=== PATIENT | female | born 1980 | race Caucasian/White ===

== ENCOUNTER → 2018-03-23 | Outpatient (CLI) | payer BC, OTHER ==
[~2018-03-23] MED LIST: BCPILLS PO; CGN5 PO; CLOZ100T PO; DPRCR15 TD; HALO5TAB PO; LITH300T2 PO; METR0.754 TD; NZRCR TD; OMEP40CA36 PO; SPIR50TA2 PO; SPT/ PO; SYN100 PO; [UNRECOGNIZED DRUG - OTHER]
--- NOTE | 2018-03-23 18:02 | DIAGNOSTIC IMAGING REPORT ---
PA CHEST WITH ABDOMINAL SERIES CLINICAL HISTORY: Constipation. FINDINGS: A PA chest radiograph is obtained. No prior studies are available for comparison at the time of dictation. The cardiomediastinal silhouette is unremarkable. The lungs and pleural spaces are clear noting minimal dependent atelectasis. No pneumothorax is seen. The bony thorax is grossly intact. Supine and erect abdominal radiographs are compared to study dated 11/14/2014. There is a nonobstructed abdominal bowel gas pattern. Moderate colonic fecal retention is observed. No evidence of intraperitoneal free air is seen. A tiny metallic foreign body projects over the left mid abdomen. There are no abnormal abdominal calcifications. The lumbosacral spine and bony pelvis appear intact. IMPRESSION: 1. No active disease in the chest. 2. Nonobstructed abdominal bowel gas pattern noting moderate constipation. 3. A tiny metallic foreign body projects over the left mid abdomen. Electronically signed by: Eugene Patton M.D. 03/23/2018 6:01 PM Dictated Date/Time: 03/23/2018 6:00 PM
== END | disposition home or self-care (01) ==
LOC: C.RAD 16:44
PROVIDERS: ATTEND Physician Assistant
DX: K59.00 Constipation, unspecified (principal); T18.8XXA Foreign body in other parts of alimentary tract, initial encounter; X58.XXXA Exposure to other specified factors, initial encounter

== ENCOUNTER 2024-01-10 19:17 | Observation (INO) ==
--- NOTE | 2024-01-10 19:48 | XRay Report ---
SINGLE VIEW CHEST CLINICAL HISTORY: Overdose FINDINGS: An AP, portable, upright chest radiograph is compared to study dated 01/10/2019. The cardiom ediastinal silhouette is unremarkable. The lungs and pleural spaces are clear. No pneumothorax is see n. There are chronic/healed left-sided rib fractures. IMPRESSION: No active disease in the chest. ACT 112: Negative or not required by law. Electronically signed by: Eugene Patton M.D. 01/10/2024 7:46 PM
[2024-01-10] MEDS: SODIUM CHLORIDE 0.9% 1,000 ML IV SCH ×2 (19:49→22:02)
[2024-01-10 20:22] LABS: Basophils # (auto) 0.07 K/uL (0.00-0.20); Basophils % (auto) 0.5 %; Eosinophils # (auto) 0.29 K/uL (0.00-0.50); Hematocrit (blood only) 37.9 % (37.0-47.0); Hemoglobin 13.1 g/dl (12.0-16.0); Immature Granulocytes # (auto) 0.06 K/uL (0.01-0.20); Immature Granulocytes % (auto) 0.4 %; Lymphocytes # (auto) 2.47 K/uL (1.20-3.40); Lymphocytes % (auto) 17.4 %; Mean Corpuscular Hemoglobin 30.5 pg (25.0-34.0); Mean Corpuscular Hgb Conc 34.6 g/dL (32.0-36.0); Mean Corpuscular Volume 88.1 fL (80.0-100.0); Monocytes # (auto) 0.68 K/uL (0.11-0.59); Monocytes % (auto) 4.8 %; Neutrophils # (auto) 10.59 K/uL (1.40-6.50); Neutrophils % (auto) 74.9 %; Platelet Count 316 K/uL (130-400); RDW Coefficient of Variation 11.8 % (11.5-14.5); RDW Standard Deviation 37.9 fL (36.4-46.3); White Blood Count 14.16 K/ul (4.8-10.8)
[2024-01-10 20:33] LABS: Albumin Level 4.2 gm/dl (3.4-5.0); Bilirubin,Total 0.3 mg/dl (0.2-1.0); Calcium 10.4 mg/dl (8.6-10.3); Magnesium 1.8 mg/dl (1.7-2.4); Potassium 3.5 mmol/L (3.5-5.1)
[2024-01-10 20:39] LABS: Albumin Globulin Ratio 1.7 (0.9-2); BUN Creatinine Ratio 17.8 (10-20); Creatinine Clr Calc Pharmacy 58.8 ml/min; Est GFR (African American) 65.4 ml/min; Est GFR (Non-African American) 56.4 ml/min; Globulin 2.5 gm/dl (2.5-4.0); Total Protein 6.7 gm/dl (6.0-8.3)
--- NOTE | 2024-01-10 20:48 | CT Scan Report ---
Exam(s): CT HEAD Without Contrast EXAM: CT Head Without Intravenous Contrast CLINICAL HISTORY: Reason for exam: ams. TECHNIQUE: Axial computed tomography images of the head/brain without intravenous contrast. CTDI is 36.55 mGy and DLP is 546.36 mGy-cm. Automated exposure control was utilized for the study. A dose lowering technique was utilized adhering to the principles of ALARA. COMPARISON: MRI brain on 06/05/2008 FINDINGS: Brain: No acute infarct or hemorrhage. No extra-axial fluid collection. No mass effect or midline shift. Ventricles and sulci: Normal. No ventriculomegaly or intraventricular hemorrhage. Bones: Normal. No bony lesion or acute fracture. Subcutaneous tissues: Normal. Sinuses: Normal. No air-fluid levels or mucosal thickening. Mastoid air cells: Normal. Orbits: Grossly unremarkable. IMPRESSION: No acute intracranial abnormality. Electronically signed by: Queenie Landry M.D. 01/10/24 20:46 PM
[2024-01-10 20:58] LABS: Acetaminophen < 3 ug/ml (10-30); Lithium 2.9 mmol/L (0.6-1.2); Salicylate < 3.0 mg/dl (3.0-30)
[2024-01-10] MEDS: SODIUM CHLORIDE 0.9% 1,000 ML IV ONE (21:17)
[2024-01-10 21:35] LABS: Thyroid Stimulating Hormone 1.391 uIu/ml (0.300-4.500)
[2024-01-10 21:40] LABS: Appearance Urine Clear (Clear); Bacteria Urine Automated None Seen (None Seen); Bilirubin Urine Negative (Negative); Blood Urine Trace (Negative); Cast Urine Automated 0-2 /lpf (0-2); Color Urine Yellow; Glucose Urine UA Negative (Negative); Ketones Urine Negative (Negative); Leukocyte Esterase Urine 1+ (Negative); Nitrite Urine Negative (Negative); Protein Urine Negative (Negative); RBC Urine Automated 0-2 /hpf (0-2); Specific Gravity Urine 1.007 (1.000-1.030); Urobilinogen Urine Negative (Negative)
--- NOTE | 2024-01-10 22:21 | History & Physical Report ---
Date of Service January 10, 2024 Assessment & Plan (1) [place] toxicity: (2) Constipation: (3) ADHD: (4) Hyperlipidemia: (5) Gastroesophageal reflux disease: (6) Paranoid schizophrenia: (7) Polycystic ovarian syndrome: Plan [place] toxicity- Dehydration with mild hypercalcemia, mild hyponatremia and borderline low magnesium Status post 2 L normal saline bolus in the ED Receiving an additional 500 mL of normal saline at 250 mL/h Maintenance IV fluids additional 1 L of LR at 125 MLS per hour Repeat CBC with differential, chemistry profile, magnesium and lithium levels in the a.m. Paranoid schizophrenia/ADHD Continue clozapine, amantadine, Adderall, naltrexone and sertraline Holding lithium due to toxicity PCOS/overweight/IBS with constipation- Following with bariatric service as outpatient Continue docusate, iron sulfate, naltrexone and omeprazole Hold Linzess and metformin History of Present Illness Chief Complaint: The patient is referred into the emergency department due to outpatient lab oratories which revealed an elevated lithium level Primary Care Provider: MARCE Rodriguez The patient is a 43-year-old female with a past medical history including ADHD, overweight with BMI 25.0-29 point hyperlipidemia, IBS with constipation, GERD, hypothyroidism, PCOS, and paranoid schizophrenia. Routine laboratories performed in the outpatient setting revealed a lithium level of 2.1, and patient had already taken her evening lithium dose before receiving her phone call by elevated level, and was told to come to the ED for assessment. [place] level in the ED is elevated 2.9, and she is referred for evaluation for admission. The patient's primary associated symptom is that of worsening fatigue. Allergies Allergy/AdvReac Type Severity Reaction Status Date / Time No Known Drug Allergies Allergy . Verified 01/10/24 21:36 nickel AdvReac Rash Verified 01/10/24 21:36 Home Medications Medication Instructions Recorded Confirmed Type sodium fluoride 1.1 %-potassium 1 applic dental DAILY 12/24/18 01/10/24 History nitrate 5 % dental paste (PreviDent 5000 Enamel Protect) lithium carbonate 300 mg capsule 1,200 mg PO HS 05/06/19 01/10/24 History polyethylene glycol 3350 17 17 g PO DAILY #238 grams 09/17/19 01/10/24 Rx gram/dose oral powder (Miralax) cholecalciferol (vitamin D3) 25 25 mcg PO DAILY 05/28/20 01/10/24 History mcg (1,000 unit) capsule ferrous sulfate 325 mg (65 mg 325 mg PO TID 05/28/20 01/10/24 History iron) tablet (Feosol) sertraline 100 mg tablet 250 mg PO DAILY 04/27/22 01/10/24 History docusate sodium 100 mg capsule 100 mg PO QID 05/11/22 01/10/24 History amantadine HCl 100 mg tablet 100 mg PO DAILY 01/10/23 01/10/24 History norethindrone 0.5 mg-ethinyl 1 tab PO DAILY #84 tabs 01/26/23 01/10/24 Rx estradiol 35 mcg tablet (Alisha (28)) naltrexone 50 mg tablet 50 mg PO DAILY #90 tabs 08/25/23 01/10/24 Rx metronidazole 0.75 % topical cream 1 applic topical BID #90 grams 09/18/23 01/10/24 Rx tretinoin 0.025 % topical cream 1 applic topical .COMPLEX #45 grams 09/18/23 01/10/24 Rx levothyroxine 125 mcg tablet 125 mcg PO DAILY #30 tabs 09/29/23 01/10/24 Rx clozapine 200 mg tablet 200 mg PO QAM 10/10/23 01/10/24 History spironolactone 100 mg tablet 100 mg PO BID #60 tabs 10/24/23 01/10/24 Rx metformin 500 mg tablet,extended 1,000 mg (2 x 500 mg) PO BIDWMEAL 11/28/23 01/10/24 Rx release 24 hr #360 tabs omeprazole 40 mg capsule,delayed 40 mg PO BID #180 caps 12/29/23 01/10/24 Rx release betamethasone dipropionate 0.05 % 1 applic topical DAILY PRN Skin 01/10/2412/13 History topical cream Irritation clozapine 200 mg tablet 100 mg PO .AFTERNOON&VEL 01/10/24 01/10/24 History cranberry 400 mg capsule 400 mg PO DAILY 01/10/24 01/10/24 History dextroamphetamine-amphetamine 10 10 mg PO .@NOON 01/10/24 01/10/24 History mg tablet dextroamphetamine-amphetamine 10 20 mg PO QAM 01/10/24 01/10/24 History mg tablet dicyclomine 10 mg capsule 10 mg PO DAILY PRN Abdominal Pain 01/10/24 01/10/24 History linaclotide 290 mcg capsule 290 mcg PO DAILY 01/10/24 01/10/24 History (Natalies) Past Med/Surg History Problem List (Updated 01/11/24 @ 00:46 by Manuel Sevilla MD) [place] toxicity (Acute) Hypercalcemia Constipation ADHD Overweight with body mass index (BMI) 25.0-29.9 Hyperlipidemia Irritable bowel syndrome with constipation BMI 32.0-32.9,adult Hidradenitis suppurativa Oral contraceptive prescribed (Acute) Iron deficiency anemia (Chronic) Grief (Acute) of sister February 2019 secondary to die cutter operator cancer Acne vulgaris (Chronic) Gastroesophageal reflux disease (Chronic) Hepatic cyst (Chronic) Hypothyroidism (Chronic) Paranoid schizophrenia (Chronic) Polycystic ovarian syndrome (Chronic) Medical History Schizophrenia Surgical History H/O oral surgery Family History Mother Depression Father Hypertension Mother Osteoporosis Family/Other Colorectal cancer grandparent Sister Cancer ? 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 and No Beliefs That Will Affect Care: None marital status: Single Current Living Situation: Parent current occupational status: employed 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 Feels Safe at Home: Yes Childhood Exposure to Second-Hand Smoke: No Diet: regular caffeine: Yes Dental Care, Regularly: Yes Physical Activity Frequency: Daily Physical Activity Frequency Comment: walk, jog Seatbelt Use: always Sunscreen Use: Yes Review of Systems Review of Systems: The patient denies chest pain, palpitations, shortness of breath, dyspnea on exertion, cough, lower extremity swelling, sore throat, fevers, chills, sweats, nausea, vomiting, diarrhea , constipation, abdominal pain, pelvic pain, blood in urine or stool, dysuria, urinary frequency or urgency, lightheadedness, dizziness, headache, rash, abnormal bruising or bleeding, imbalance, focal weakness, numbness or tingling in arms or legs, generalized arthralgias or myalgias, back or neck pain, or night sweats. The review of systems is otherwise negative other than for that already noted above, and at least 10 systems have been reviewed. Physical Exam Physical Exam: The patient is awake, alert and oriented 3, well developed and well nourished, normocephalic and atraumatic, lying in bed and in no acute distress. HEENT--PERRL, EOMI, mucous membranes and oropharynx mildly dry. Neck--supple. No JVD. No bruits. Thyroid normal, trachea midline, no adenopathy. Heart--normal S1 and S2. No murmurs, rubs or gallops. Lungs--clear bilaterally, no respiratory distress, no accessory muscle use. Abdomen--normal bowel sounds and soft. Nontender. Nondistended, no hernias or masses, no organomegaly. Extremities--no cyanosis or clubbing. No edema. There are good distal pulses b/l. Dermatologic--normal skin turgor, normal color, no abnormal lymph nodes, no rash. Neurologic--cranial nerves II through XII grossly intact. Rheumatologic--normal range of motion. Psychiatric--normal affect. Results & Data Results & Data Vital Signs (Past 12 Hours) Vital Signs Temp Pulse Resp BP Pulse Ox O2 Del Method 01/10/24 21:15 65 21 98 01/10/24 21:15 111/75 01/10/24 21:00 101/60 01/10/24 21:00 67 21 97 01/10/24 20:45 68 20 96 01/10/24 20:45 98/60 L 01/10/24 20:30 68 22 97 01/10/24 20:30 99/59 L 01/10/24 20:15 102/65 01/10/24 20:15 69 23 96 01/10/24 20:00 94/58 L 01/10/24 20:00 69 21 01/10/24 19:45 68 20 01/10/24 19:45 104/57 L 01/10/24 19:32 70 22 01/10/24 19:32 107/63 01/10/24 19:32 70 01/10/24 19:22 36.6 C 74 18 85/50 L 99 Room Air Laboratory Results Laboratory Results WBC 14.16 K/ul (4.8-10.8) H 01/10/24 Unknown RBC 4.30 M/uL (4.20-5.40) 01/10/24 Unknown Hgb 13.1 g/dl (12.0-16.0) 01/10/24 Unknown Hct 37.9 % (37.0-47.0) 01/10/24 Unknown MCV 88.1 fL (80.0-100.0) 01/10/24 Unknown MCH 30.5 pg (25.0-34.0) 01/10/24 Unknown MCHC 34.6 g/dL (32.0-36.0) 01/10/24 Unknown RDW Std Deviation 37.9 fL (36.4-46.3) 01/10/24 Unknown RDW Coeff of Cassie 11.8 % (11.5-14.5) 01/10/24 Unknown Plt Count 316 K/uL (130-400) 01/10/24 Unknown MPV 11.0 fL (9.4-12.4) 01/10/24 Unknown Immature Gran % (Auto) 0.4 % 01/10/24 Unknown Neut % (Auto) 74.9 % 01/10/24 Unknown Lymph % (Auto) 17.4 % 01/10/24 Unknown [place] % (Auto) 4.8 % 01/10/24 Unknown Eos % (Auto) 2.0 % 01/10/24 Unknown Baso % (Auto) 0.5 % 01/10/24 Unknown Neut # (Auto) 10.59 K/uL (1.40-6.50) H 01/10/24 Unknown Lymph # (Auto) 2.47 K/uL (1.20-3.40) 01/10/24 Unknown [place] # (Auto) 0.68 K/uL (0.11-0.59) H 01/10/24 Unknown Eos # (Auto) 0.29 K/uL (0.00-0.50) 01/10/24 Unknown Baso # (Auto) 0.07 K/uL (0.00-0.20) 01/10/24 Unknown Immature Gran # (Auto) 0.06 K/uL (0.01-0.20) 01/10/24 Unknown Sodium 131 mmol/L (136-145) L 01/10/24 Unknown Potassium 3.5 mmol/L (3.5-5.1) 01/10/24 Unknown Chloride 102 mmol/L (98-107) 01/10/24 Unknown Carbon Dioxide 22 mmol/L (21-32) 01/10/24 Unknown Anion Gap 7 (3-11) 01/10/24 Unknown BUN 21 mg/dl (6-23) 01/10/24 Unknown Creatinine 1.18 mg/dl (0.6-1.2) 01/10/24 Unknown Est Cr Clr Drug Dosing 58.8 ml/min 01/10/24 Unknown Est GFR ( Amer) 65.4 ml/min 01/10/24 Unknown Est GFR (Non-Af Amer) 56.4 ml/min 01/10/24 Unknown BUN/Creatinine Ratio 17.8 (10-20) 01/10/24 Unknown Glucose 93 mg/dl (70-99(Fasting)) 01/10/24 Unknown Calcium 10.4 mg/dl (8.6-10.3) H 01/10/24 Unknown Magnesium 1.8 mg/dl (1.7-2.4) 01/10/24 Unknown Total Bilirubin 0.3 mg/dl (0.2-1.0) 01/10/24 Unknown AST 14 U/L (13-39) 01/10/24 Unknown ALT 22 U/L (7-52) 01/10/24 Unknown Alkaline Phosphatase 161 U/L (34-104) H 01/10/24 Unknown Total Protein 6.7 gm/dl (6.0-8.3) 01/10/24 Unknown Albumin 4.2 gm/dl (3.4-5.0) 01/10/24 Unknown Globulin 2.5 gm/dl (2.5-4.0) 01/10/24 Unknown Albumin/Globulin Ratio 1.7 (0.9-2) 01/10/24 Unknown TSH 1.391 uIu/ml (0.300-4.500) 01/10/24 Unknown Urine Color Yellow 01/10/24 Unknown Urine Appearance Clear (Clear) 01/10/24 Unknown Urine pH 6.0 (4.5-7.5) 01/10/24 Unknown Ur Specific [place] 1.007 (1.000-1.030) 01/10/24 Unknown Urine Protein Negative (Negative) 01/10/24 Unknown Urine Glucose (UA) Negative (Negative) 01/10/24 Unknown Urine Ketones Negative (Negative) 01/10/24 Unknown Urine Blood Trace (Negative) H 01/10/24 Unknown Urine Nitrite Negative (Negative) 01/10/24 Unknown Urine Bilirubin Negative (Negative) 01/10/24 Unknown Urine Urobilinogen Negative (Negative) 01/10/24 Unknown Ur Leukocyte Esterase 1+ (Negative) H 01/10/24 Unknown Urine WBC (Auto) 6-10 /hpf (0-5) H 01/10/24 Unknown Urine RBC (Auto) 0-2 /hpf (0-2) 01/10/24 Unknown U Hyaline Cast (Auto) 0-2 /lpf (0-2) 01/10/24 Unknown U Epithel Cells (Auto) 6-10 /hpf (0-2) H 01/10/24 Unknown Urine Bacteria (Auto) None Seen (None Seen) 01/10/24 Unknown Salicylates < 3.0 mg/dl (3.0-30) L 01/10/24 Unknown Urine Opiates Screen Neg (Neg) 01/10/24 Unknown Ur Methadone, Qual Neg (Neg) 01/10/24 Unknown Urine Fentanyl Screen Neg (Neg) 01/10/24 Unknown Acetaminophen < 3 ug/ml (10-30) L 01/10/24 Unknown Urine Barbiturates Neg (Neg) 01/10/24 Unknown Ur Phencyclidine (PCP) Neg (Neg) 01/10/24 Unknown U Amphetamin/Meth Scrn Pos (Neg) H 01/10/24 Unknown MDMA (Ecstasy) Screen Neg (Neg) 01/10/24 Unknown U Benzodiazepines Scrn Neg (Neg) 01/10/24 Unknown [place] 2.9 mmol/L (0.6-1.2) H* 01/10/24 Unknown Ur Cocaine Metabolite Neg (Neg) 01/10/24 Unknown U Marijuana (THC) Screen Neg (Neg) 01/10/24 Unknown Ethyl Alcohol mg/dL < 10.0 mg/dl (<10.0) 01/10/24 Unknown Impressions Chest X-Ray 01/10/24 19:29 SINGLE VIEW CHEST CLINICAL HISTORY: Overdose FINDINGS: An AP, portable, upright chest radiograph is compared to study dated 01/10/2019. The cardiomediastinal silhouette is unremarkable. The lungs and pleural spaces are clear. No pneumothorax is seen. There are chronic/healed left-sided rib fractures. IMPRESSION: No active disease in the chest. ACT 112: Negative or not required by law. Electronically signed by: Eugene Patton M.D. 01/10/2024 7:[address] 01/10/24 19:35 Exam(s): CT HEAD Without Contrast EXAM: CT Head Without Intravenous Contrast CLINICAL HISTORY: Reason for exam: ams. TECHNIQUE: Axial computed tomography images of the head/brain without intravenous contrast. CTDI is 36.55 mGy and DLP is 546.36 mGy-cm. Automated exposure control was utilized for the study. A dose lowering technique was utilized adhering to the principles of ALARA. COMPARISON: MRI brain on 06/05/2008 FINDINGS: Brain: No acute infarct or hemorrhage. No extra-axial fluid collection. No mass effect or midline shift. Ventricles and sulci: Normal. No ventriculomegaly or intraventricular hemorrhage. Bones: Normal. No bony lesion or acute fracture. Subcutaneous tissues: Normal. Sinuses: Normal. No air-fluid levels or mucosal thickening. Mastoid air cells: Normal. Orbits: Grossly unremarkable. IMPRESSION: No acute intracranial abnormality. Electronically signed by: Queenie Landry M.D. 01/10/24 20:46 PM Code Status & VTE Plan Code Status Full code VTE Prophylaxis Plan VTE Prophylaxis will be ordered: Yes PG Care Time/CCT Total # of Minutes Spent Total Time Spent with Patient: Total time spent is greater than 50% in coordination of care (as documented) at patient's floor/unit and/or counseling patient: Coding Level of Care Code 88718 INT INP/OBS CARE 3/75MIN Diagnoses [place] toxicity T56.894A Encounter type: initial encounter Injury intent: undetermined intent Constipation K59.00 ADHD F90.9 Hyperlipidemia E78.5 Gastroesophageal reflux disease without esophagitis K21.9 Esophagitis presence: without esophagitis Paranoid schizophrenia F20.0 Polycystic ovarian syndrome E28.2 (1) [place] toxicity Encounter type: initial encounter Injury intent: undetermined intent Qualified Code(s): T56.894A - Toxic effect of other metals, undetermined, initial encounter (5) Gastroesophageal reflux disease Esophagitis presence: without esophagitis Qualified Code(s): K21.9 - Gastro- esophageal reflux disease without esophagitis
[2024-01-10 22:31] LABS: Amphetamines+Metham, Urine Pos (Neg); Barbiturates, Urine Neg (Neg); Benzodiazepine, Urine Neg (Neg); Cocaine, Urine Neg (Neg); Fentanyl, Urine Neg (Neg); MDMA (Ecstacy), Urine Neg (Neg); Marijuana, Urine Neg (Neg); Methadone, Urine Neg (Neg); Opiate, Urine Neg (Neg); Phencyclidine, Urine Neg (Neg)
[2024-01-11] MEDS ORDERED: ACETAMINOPHEN 325 MG TAB PO PRN (00:18)
[2024-01-11] MEDS ORDERED: DICYCLOMINE HCL 10 MG CAP PO PRN (00:18)
[2024-01-11] MEDS ORDERED: ONDANSETRON INJ 2 MG/ML 2 ML VIAL IV PRN (00:18)
--- NOTE | 2024-01-11 00:36 | Emergency Department Note ---
History of Present Illness General Chief complaint: Referred by Doctor Stated complaint: MEMORY PROBLEM, IV FLUIDS Time Seen by Provider: 01/10/24 19:28 Source: family (Parents at bedside) History of Present Illness Provider complaint: Increased confusion difficulty remembering things concern for lithium toxic 43-year-old female presents emergency department for increased confusion and difficulty remembering things and possible lithium toxicity. Patient reports family is providing history. Family reports that over the last 3 weeks patient been becoming increasing confused difficulty remembering things more mostly labile. Difficulty walking. No falls or traumas. They report that the patient has been on lithium for a long time. They report that there is no intentional suicidal overdose. They report that they saw the PCP today and instructed to come to the emergency department due to an elevated lithium level Home Medications Medication Instructions Recorded Confirmed Type sodium fluoride 1.1 %-potassium 1 applic dental DAILY 12/24/18 01/10/24 History nitrate 5 % dental paste (PreviDent 5000 Enamel Protect) lithium carbonate 300 mg capsule 1,200 mg PO HS 05/06/19 01/10/24 History polyethylene glycol 3350 17 17 g PO DAILY #238 grams 09/17/19 01/10/24 Rx gram/dose oral powder (Miralax) cholecalciferol (vitamin D3) 25 25 mcg PO DAILY 05/28/20 01/10/24 History mcg (1,000 unit) capsule ferrous sulfate 325 mg (65 mg 325 mg PO TID 05/28/20 01/10/24 History iron) tablet (Feosol) sertraline 100 mg tablet 250 mg PO DAILY 04/27/22 01/10/24 History docusate sodium 100 mg capsule 100 mg PO QID 05/11/22 01/10/24 History amantadine HCl 100 mg tablet 100 mg PO DAILY 01/10/23 01/10/24 History norethindrone 0.5 mg-ethinyl 1 tab PO DAILY #84 tabs 01/26/23 01/10/24 Rx estradiol 35 mcg tablet (Alisha (28)) naltrexone 50 mg tablet 50 mg PO DAILY #90 tabs 08/25/23 01/10/24 Rx metronidazole 0.75 % topical cream 1 applic topical BID #90 grams 09/18/23 01/10/24 Rx tretinoin 0.025 % topical cream 1 applic topical .COMPLEX #45 grams 09/18/23 01/10/24 Rx levothyroxine 125 mcg tablet 125 mcg PO DAILY #30 tabs 09/29/23 01/10/24 Rx clozapine 200 mg tablet 200 mg PO QAM 10/10/23 01/10/24 History spironolactone 100 mg tablet 100 mg PO BID #60 tabs 10/24/23 01/10/24 Rx metformin 500 mg tablet,extended 1,000 mg (2 x 500 mg) PO BIDWMEAL 11/28/23 01/10/24 Rx release 24 hr #360 tabs omeprazole 40 mg capsule,delayed 40 mg PO BID #180 caps 12/29/23 01/10/24 Rx release betamethasone dipropionate 0.05 % 1 applic topical DAILY PRN Skin 01/10/24 01/10/24 History topical cream Irritation clozapine 200 mg tablet 100 mg PO .AFTERNOON&VEL 01/10/24 01/10/24 History cranberry 400 mg capsule 400 mg PO DAILY 01/10/24 01/10/24 History dextroamphetamine-amphetamine 10 10 mg PO .@NOON 01/10/24 01/10/24 History mg tablet dextroamphetamine-amphetamine 10 20 mg PO QAM 01/10/24 01/10/24 History mg tablet dicyclomine 10 mg capsule 10 mg PO DAILY PRN Abdominal Pain 01/10/24 01/10/24 History linaclotide 290 mcg capsule 290 mcg PO DAILY 01/10/24 01/10/24 History (Linzess) Allergies Allergy/AdvReac Type Severity Reaction Status Date / Time No Known Drug Allergies Allergy . 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 marital status: Single Current Living Situation: Parent and Family current occupational status: employed 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 Feels Safe at Home: Yes Childhood Exposure to Second-Hand Smoke: No Diet: regular caffeine: Yes Dental Care, Regularly: Yes Physical Activity Frequency: Daily Physical Activity Frequency Comment: walk, jog Seatbelt Use: always Sunscreen Use: Yes Physical Exam Vital Signs Vital Signs - 24 hr 01/10/24 19:22 01/10/24 19:32 01/10/24 19:32 Temperature 36.6 C Temperature Source Temporal Artery Scan Pulse Rate 74 70 Pulse Rate from SpO2 Sensor Respiratory Rate 18 Respiratory Effort / Characteristics Non-Labored Respiratory Depth Normal Blood Pressure 85/50 L 107/63 Blood Pressure Mean 61 69 Pulse Oximetry 99 Oxygen Delivery Method Room Air Sepsis Recent Fever Within 48 Hours No Sepsis New/Unexplained Change in Mental Status No Sepsis Action Taken by Nursing No Action Required 01/10/24 19:32 01/10/24 19:45 01/10/24 19:45 Temperature Temperature Source Pulse Rate 70 68 Pulse Rate from SpO2 Sensor Respiratory Rate 22 20 Respiratory Effort / Characteristics Respiratory Depth Blood Pressure 104/57 L Blood Pressure Mean 79 Pulse Oximetry Oxygen Delivery Method Sepsis Recent Fever Within 48 Hours Sepsis New/Unexplained Change in Mental Status Sepsis Action Taken by Nursing 01/10/24 20:00 01/10/24 20:00 01/10/24 20:15 Temperature Temperature Source Pulse Rate 69 69 Pulse Rate from SpO2 Sensor 69 Respiratory Rate 21 23 Respiratory Effort / Characteristics Respiratory Depth Blood Pressure 94/58 L Blood Pressure Mean 64 Pulse Oximetry 96 Oxygen Delivery Method Sepsis Recent Fever Within 48 Hours Sepsis New/Unexplained Change in Mental Status Sepsis Action Taken by Nursing 01/10/24 20:15 01/10/24 20:30 01/10/24 20:30 Temperature Temperature Source Pulse Rate 68 Pulse Rate from SpO2 Sensor 68 Respiratory Rate 22 Respiratory Effort / Characteristics Respiratory Depth Blood Pressure 102/65 99/59 L Blood Pressure Mean 72 64 Pulse Oximetry 97 Oxygen Delivery Method Sepsis Recent Fever Within 48 Hours Sepsis New/Unexplained Change in Mental Status Sepsis Action Taken by Nursing 01/10/24 20:45 01/10/24 20:45 01/10/24 21:00 Temperature Temperature Source Pulse Rate 68 67 Pulse Rate from SpO2 Sensor 68 67 Respiratory Rate 20 21 Respiratory Effort / Characteristics Respiratory Depth Blood Pressure 98/60 L Blood Pressure Mean 77 Pulse Oximetry 96 97 Oxygen Delivery Method Sepsis Recent Fever Within 48 Hours Sepsis New/Unexplained Change in Mental Status Sepsis Action Taken by Nursing 01/10/24 21:00 01/10/24 21:15 01/10/24 21:15 Temperature Temperature Source Pulse Rate 65 Pulse Rate from SpO2 Sensor 65 Respiratory Rate 21 Respiratory Effort / Characteristics Respiratory Depth Blood Pressure 101/60 111/75 Blood Pressure Mean 77 87 Pulse Oximetry 98 Oxygen Delivery Method Sepsis Recent Fever Within 48 Hours Sepsis New/Unexplained Change in Mental Status Sepsis Action Taken by Nursing Physical Exam HENT: Exam performed. - Head: Normocephalic and atraumatic. EYES: Conjunctivae and EOM are normal. Right eye exhibits no discharge. Left eye exhibits no discharge. No scleral icterus. NECK: Normal range of motion. Neck supple. No JVD present. CV: Normal rate, regular rhythm, normal heart sounds and intact distal pulses. There is no peripheral edema. Palpable radial pulses bue. PULM/CHEST: Effort normal and breath sounds normal. No respiratory distress. No stridor. no wheezes. no rales. NEURO: Motor and sensation grossly intact. PSYCH: Bizarre affect. No suicidal ideation Course Course 1927: The patient was evaluated in room B5. A complete history and physical exam was performed Cardiac monitoring: An order was placed for continuous cardiac monitoring. The monitor shows a rate of 70 with sinus rhythm interpreted by me 2100: Vital signs stable. Labs show leukocytosis of 14.16. Bonaparte 2.9. Patient will be hydrated with IV fluids. Hemodynamically stable. This is thought to be a chronic lithium toxicity not in acute lithium toxicity. [facility] Dr. Nogueira notified. Administered Medications Sodium Chloride (Nss) 1,000 mls @ 250 mls/hr IV .Q4H ITTUS Stop: 02/09/24 21:14 Last Admin: 01/10/24 22:02 Dose: 250 mls/hr Documented By: CASTILLO Discontinued Medications Sodium Chloride (Nss) 1,000 mls @ 999 mls/hr IV .Q1H1M TITUS Stop: 01/10/24 20:30 Last Infusion: 01/10/24 20:53 Dose: Infused Documented By: Admin: 01/10/24 19:49 Dose: 999 mls/hr Documented By: BRIAN Sodium Chloride (Nss) 1,000 mls @ 999 mls/hr IV .Q1H1M ONE Stop: 01/10/24 22:03 Last Infusion: 01/10/24 22:46 Dose: Infused Documented By: Admin: 01/10/24 21:17 Dose: 999 mls/hr Documented By: CASTILLO Medical Decision Making Laboratory Data Attestation: I reviewed the patient's lab results. 01/10/24 Unknown 01/10/24 Unknown Imaging Data Attestation: I personally reviewed and interpreted this imaging study as follows: My Impression: CT head no ICH Radiologist's Impression: Chest X-Ray 01/10/24 19:29 SINGLE VIEW CHEST CLINICAL HISTORY: Overdose FINDINGS: An AP, portable, upright chest radiograph is compared to study dated 01/10/2019. The cardiomediastinal silhouette is unremarkable. The lungs and pleural spaces are clear. No pneumothorax is seen. There are chronic/healed left-sided rib fractures. IMPRESSION: No active disease in the chest. ACT 112: Negative or not required by law. Electronically signed by: Eugene Patton M.D. 01/10/2024 7:[address] 01/10/24 19:35 Exam(s): CT HEAD Without Contrast EXAM: CT Head Without Intravenous Contrast CLINICAL HISTORY: Reason for exam: ams. TECHNIQUE: Axial computed tomography images of the head/brain without intravenous contrast. CTDI is 36.55 mGy and DLP is 546.36 mGy-cm. Automated exposure control was utilized for the study. A dose lowering technique was utilized adhering to the principles of ALARA. COMPARISON: MRI brain on 06/05/2008 FINDINGS: Brain: No acute infarct or hemorrhage. No extra-axial fluid collection. No mass effect or midline shift. Ventricles and sulci: Normal. No ventriculomegaly or intraventricular hemorrhage. Bones: Normal. No bony lesion or acute fracture. Subcutaneous tissues: Normal. Sinuses: Normal. No air-fluid levels or mucosal thickening. Mastoid air cells: Normal. Orbits: Grossly unremarkable. IMPRESSION: No acute intracranial abnormality. Electronically signed by: Queenie Landry M.D. 01/10/24 20:46 PM ECG Data Attestation: I personally reviewed and interpreted this ECG as follows: Rate (beats per minute): 68 Rhythm: + normal sinus ECG Intervals/blocks: + Normal QRS, + Prolonged QT and + Normal VA ECG ST segments: + Normal ST segments [facility] Narrative 1928: The patient was evaluated in room B5. A complete history and physical exam was performed Cardiac monitoring: An order was placed for continuous cardiac monitoring. The monitor shows a rate of 70 with sinus rhythm interpreted by co 2100: Vital signs stable. Labs show leukocytosis of 14.16. Bonaparte 2.9. Patient will be hydrated with IV fluids. Hemodynamically stable. This is thought to be a chronic lithium toxicity not in acute lithium toxicity. Patient will be [facility] to the [facility] team Dr. Nogueira notified. Impression & Plan Bonaparte toxicity Discharge Plan Visit Data Chief Complaint: Referred by Doctor Stated Complaint: MEMORY PROBLEM, IV FLUIDS ED Provider: Manuel Sevilla Discharge Problem: Bonaparte toxicity Patient Disposition: Admitted As Inpatient Discharge Instructions Interventions: ED Discharge Assessment Last Done: 01/11/24 00:18 Discharge Problem: Bonaparte toxicity Qualifiers: Encounter type: initial encounter Injury intent: undetermined intent Qualified Code(s): T56.894A - Toxic effect of other metals, undetermined, initial encounter
[2024-01-11] MEDS ORDERED: TRIAMCINOLONE ACET 0.5% CR 15 GM TUBE TOP PRN (00:48)
[2024-01-11] MEDS: LACTATED RINGER'S 1,000 ML IV SCH (01:14)
[2024-01-11 05:06] LABS: Basophils # (auto) 0.05 K/uL (0.00-0.20); Basophils % (auto) 0.4 %; Eosinophils # (auto) 0.27 K/uL (0.00-0.50); Eosinophils % (auto) 2.4 %; Hematocrit (blood only) 32.1 % (37.0-47.0); Hemoglobin 10.8 g/dl (12.0-16.0); Immature Granulocytes # (auto) 0.04 K/uL (0.01-0.20); Immature Granulocytes % (auto) 0.4 %; Lymphocytes # (auto) 2.44 K/uL (1.20-3.40); Lymphocytes % (auto) 21.6 %; Mean Corpuscular Hemoglobin 30.3 pg (25.0-34.0); Mean Corpuscular Hgb Conc 33.6 g/dL (32.0-36.0); Mean Corpuscular Volume 90.2 fL (80.0-100.0); Monocytes # (auto) 0.58 K/uL (0.11-0.59); Monocytes % (auto) 5.1 %; Neutrophils % (auto) 70.1 %; Platelet Count 238 K/uL (130-400); RDW Coefficient of Variation 11.9 % (11.5-14.5); RDW Standard Deviation 39.3 fL (36.4-46.3); Red Blood Count 3.56 M/uL (4.20-5.40); White Blood Count 11.28 K/ul (4.8-10.8)
[2024-01-11 05:08] LABS: Albumin Globulin Ratio 1.7 (0.9-2); Albumin Level 3.1 gm/dl (3.4-5.0); BUN Creatinine Ratio 17.1 (10-20); Bilirubin,Total 0.2 mg/dl (0.2-1.0); Calcium 8.2 mg/dl (8.6-10.3); Creatinine Clr Calc Pharmacy 66.1 ml/min; Est GFR (African American) 75.3 ml/min; Globulin 1.8 gm/dl (2.5-4.0); Magnesium 1.8 mg/dl (1.7-2.4); Potassium 3.8 mmol/L (3.5-5.1); Total Protein 4.9 gm/dl (6.0-8.3)
[2024-01-11] MEDS: LEVOTHYROXINE SODIUM 125 MCG TABLET PO SCH (06:28)
--- NOTE | 2024-01-11 07:53 | Electrocardiogram Report ---
Test Reason : Blood Pressure : / mmHG Vent. Rate : 068 BPM Atrial Rate : 068 BPM P-R Int : 190 ms QRS Dur : 100 ms QT Int : 526 ms P-R-T Axes : 029 050 049 degrees QTc Int : 559 ms Normal sinus rhythm Diffuse Minor Nonspecific T wave abnormality Abnormal ECG When compared with ECG of 15-AUG-2008 13:20, Vent. rate has decreased BY 34 BPM Confirmed by Abdoul Marcos ([id number]) on 01/11/2024 7:53:06 AM Referred By: REFERRED SELF Confirmed By:Abdoul Marcos
[2024-01-11] MEDS: SERTRALINE HCL 100 MG TABLET PO SCH (08:05)
[2024-01-11] MEDS: DEXTROAMPHETAMINE/AMPHETAMINE IR 20 MG TAB PO SCH (08:05)
[2024-01-11] MEDS: SPIRONOLACTONE 100 MG TAB PO SCH (08:05)
[2024-01-11] MEDS: POLYETHYLENE (MIRALAX) 17 GM PACK PO SCH (08:06)
[2024-01-11] MEDS: cloZAPine 100 MG TAB PO SCH ×2 (08:06→12:36)
[2024-01-11] MEDS: NALTREXONE HCL 50 MG TAB PO SCH (08:06)
[2024-01-11] MEDS: CHOLECALCIFEROL 25 MCG (1000 UNITS) TAB PO SCH (08:06)
[2024-01-11] MEDS: FERROUS SULFATE 325 MG TAB PO SCH (08:06)
[2024-01-11] MEDS: DOCUSATE SODIUM 100 MG CAP PO SCH (08:06)
[2024-01-11] MEDS: PANTOprazole 40 MG TAB PO SCH (08:06)
[2024-01-11] MEDS: AMANTADINE HCL 100 MG CAPSULE PO SCH (08:07)
--- NOTE | 2024-01-11 10:53 | Discharge Summary ---
Date of Service January 11, 2024 Admission HPI Per Admitting Provider The patient is a 43-year-old female with a past medical history including ADHD, overweight with BMI 25.0-29 point hyperlipidemia, IBS with constipation, GERD, hypothyroidism, PCOS, and paranoid schizophrenia. Routine laboratories performed in the outpatient setting revealed a lithium level of 2.1, and patient had already taken her evening lithium dose before receiving her phone call by elevated level, and was told to come to the ED for assessment. Markham level in the ED is elevated 2.9, and she is referred for evaluation for admission. The patient's primary associated symptom is that of worsening fatigue. Principal Diagnosis Altered mental status possibly due to lithium toxicity Discharge Exam General-alert and oriented x3, no fever, no chills HEENT-head atraumatic and normocephalic, pupils equal and reactive to light, extraocular muscles intact Neck-no lymphadenopathy or thyromegaly, trachea midline Chest-clear to auscultation. No rales, wheezing or rhonchi Cardiac-regular rate and rhythm, normal S1 and S2 Abdomen-normal bowel sounds, no hepatosplenomegaly Extremities-no cyanosis, clubbing, or edema Neuro-cranial nerves II through XII intact, motor and sensory function within normal limits, strength symmetrical, no focal deficits Psych-normal affect, normal mood Discharge Data Allergies Allergy/AdvReac Type Severity Reaction Status Date / Time No Known Drug Allergies Allergy . Verified 01/10/24 21:36 nickel AdvReac Rash Verified 01/10/24 21:36 Consultations 01/10/24 21:04 ED Decision to Admit Stat Ordered Studies 01/10/24 19:35 CT head/brain wo con Stat Hospital Course (1) Markham toxicity: Markham is mildly elevated at 2.0. She will remain off lithium for another 2 days then resume the previous dosing as she is hesitant to change the dose. Her PCP can follow-up on lithium levels. Parents are present and also understand the situation (2) Constipation: Continue MiraLAX and Colace as needed for any recurrent constipation (3) ADHD: Stable. Continue current medical management (4) Hyperlipidemia: Stable. Continue current medical management (5) Gastroesophageal reflux disease: Stable. Continue current medical management (6) Paranoid schizophrenia: Markham will remain on hold for 2 more days then she will resume her previous dose as she is hesitant to decrease the dose. Her PCP or psychiatrist can order follow-up lithium levels. Plan Home today, January 10. Total Time Total Time Spent Total Time Spent (In Minutes): 45-minute Discharge Plan Discharge Items Patient Disposition: Home - Self-Care Reason For Visit: LITHIUM TOXICITY Discharge Diagnosis: Markham toxicity with altered mental status Activity: Resume your previous activity Non-emergency contact: Primary Care Provider and Psychiatrist Call non-emergency contact if: you have any medication questions and your symptoms worsen Follow-up/Referrals: Ede Hopper CRNP [Primary Care Provider] - Diet: Regular Addtl Attending Provider Instructions: Stay off lithium for 2 more days then resume the previous dose. Your primary care provider or psychiatrist can order repeat lithium levels for follow-up Pending Studies at Discharge: No Stand-Alone Forms: My ipsy, Smoking Cessation Medications and DC Order Prescriptions: Continued metronidazole 0.75 % cream 1 applic topical BID Qty: 90 3RF Rx Instructions: Apply to face twice daily. tretinoin 0.025 % cream 1 applic topical .COMPLEX Qty: 45 2RF Rx Instructions: Apply a pea-sized amount to face once daily at bedtime. Avoid eyelids, lips and nasal creases; levothyroxine 125 mcg tablet 125 mcg PO DAILY Qty: 30 2RF omeprazole 40 mg capsule,delayed release(DR/EC) 40 mg PO BID Qty: 180 3RF spironolactone 100 mg tablet 100 mg PO BID Qty: 60 5RF naltrexone 50 mg tablet 50 mg PO DAILY Qty: 90 1RF metformin 500 mg tablet extended release 24 hr 1,000 mg PO BIDWMEAL Qty: 360 1RF clozapine 200 mg tablet 200 mg PO QAM amantadine HCl 100 mg tablet 100 mg PO DAILY Rx Instructions: 01/10/24 : THIS MED CURRENTLY ON HOLD BY DR. WHALEN. sertraline 100 mg tablet 250 mg PO DAILY polyethylene glycol 3350 [Miralax] 17 gram/dose powder 17 g PO DAILY Qty: 238 11RF cholecalciferol (vitamin D3) 25 mcg (1,000 unit) capsule 25 mcg PO DAILY ferrous sulfate [Feosol] 325 mg (65 mg iron) tablet 325 mg PO TID docusate sodium 100 mg capsule 100 mg PO QID Alisha (28) 0.5-35 mg-mcg tablet 1 tab PO DAILY Qty: 84 3RF sodium fluoride-pot nitrate [PreviDent 5000 Enamel Protect] 1.1-5 % Paste 1 applic DENTAL DAILY lithium carbonate 300 mg capsule 1,200 mg PO HS betamethasone dipropionate 0.05 % Cream 1 applic TOPICAL DAILY PRN (Reason: Skin Irritation) Rx Instructions: USE TOPICALLY AFTER SHAVING, NEEDED. clozapine 200 mg Tablet 100 mg PO .AFTERNOON&VEL cranberry 400 mg Capsule 400 mg PO DAILY Rx Instructions: administer with a meal dextroamphetamine-amphetamine 10 mg Tablet 20 mg PO QAM dextroamphetamine-amphetamine 10 mg Tablet 10 mg PO .@NOON dicyclomine 10 mg capsule 10 mg PO DAILY PRN (Reason: Abdominal Pain) Linzess 290 mcg capsule 290 mcg PO DAILY Admission Data Admit Date/Time: 01/10/24 22:20 Attending Provider: Rinku Mujica Admit Provider: Vignesh Stevens Primary Care Provider: Ede Hopper Other Providers: Vignesh Stevens Coding Level of Care Code 62868 INP/OBS DISCH >30 MIN Diagnoses Markham toxicity T56.894A Encounter type: initial encounter Injury intent: undetermined intent Constipation K59.00 ADHD F90.9 Hyperlipidemia E78.5 Gastroesophageal reflux disease without esophagitis K21.9 Esophagitis presence: without esophagitis Paranoid schizophrenia F20.0
[2024-01-11] MEDS: DEXTROAMPHETAMINE/AMPHETAMINE IR 10 MG TAB PO SCH (12:36)
[2024-01-13 17:08] LABS: Amphetamine Urine, Confirm 2586 ng/mL (<250); Methamphetamine, Ur Confirm NEGATIVE ng/mL (<250)
== END 2024-01-11 13:18 | disposition home or self-care (01) ==
LOC: EDINP 19:17 → ED 19:17 → SUATTDRO 22:20 → EDINP 01-11 00:18